=== PATIENT | female | born 2000 | race Caucasian/White ===

== ENCOUNTER 2019-03-20 16:42 | Emergency (ER) | payer SELFPAY, OTHER ==
[2019-03-20 19:27] LABS: URINE BLOOD (Dip) POC Trace-lysed (NEGATIVE); URINE GLUCOSE (Dip) POC Negative (NEGATIVE); URINE KETONES (Dip) POC 2+ (NEGATIVE); URINE LEUKOCYTE EST (Dip) POC Negative (NEGATIVE); URINE NITRITE (Dip) POC Negative (NEGATIVE); URINE TOTAL PROTEIN POC 1+ (NEGATIVE)
[2019-03-20] MEDS: ONDANSETRON (ODT) 4 MG TAB ODT (20:27)
[2019-03-20] MEDS: KETOROLAC 30 MG INJ IM (23:01)
== END 2019-03-21 00:03 | disposition home or self-care (01) ==
LOC: FTE 03-21 00:03
DX: A08.4 Viral intestinal infection, unspecified (principal); J45.909 Unspecified asthma, uncomplicated; R07.9 Chest pain, unspecified
CPT/HCPCS: 81003; 81025; 87400; 87880; 93005; 96372; 99284-25